=== PATIENT | male | born 1995 | race African-American/Black ===

== ENCOUNTER 2023-08-11 12:36 | Emergency (ER) | payer OTHER ==
[~2023-08-11] VITALS: Ht 180.3 cm; Wt 92.5 kg
[2023-08-11] MEDS: TETRACAINE 0.5% OPHTH SOLN 4ML OS ONE (16:10)
[2023-08-11] MEDS: FLUORESCEIN OPHTH 1MG STRIP OS ONE (16:10)
[2023-08-11] MEDS: ACETAMINOPHEN 500 MG TAB PO ONE (16:42)
[2023-08-11 17:32] VITALS: BP 133/91; TEMP 99.5; O2SAT 95
== END 2023-08-11 17:39 | disposition home or self-care (01) ==
LOC: M ED 12:36
DX: H53.8 Other visual disturbances (principal)